=== PATIENT | female | born 1975 | race Caucasian/White ===

== ENCOUNTER → 2021-07-04 07:07 | Outpatient (CLI) | payer BC, SELFPAY ==
--- NOTE | ~2021-07-04 | MM_ITS ---
EXAMINATION: MM screening elizabeth BI w desire HISTORY: Screening TECHNIQUE: Craniocaudal and mediolateral oblique 3-D tomosynthesis images were obtained and synthetic 2-D images were generated. CAD analysis was submitted and interpreted. COMPARISON: Comparison to multiple prior studies sequentially, with oldest reviewed study dated 02/16. BREAST PARENCHYMAL COMPOSITION: There are scattered areas of fibroglandular density. FINDINGS: There is no evidence of suspicious mass, calcification, or architectural distortion to sugg est malignancy in either breast. There has been no suspicious interval change. IMPRESSION: 1. No mammographic evidence of malignancy. 2. Recommend routine screening mammography in one year. BI-RADS Category 1: Negative Reviewed, dictated and finalized at location A. OPERATOR
== END ==
PROVIDERS: PCP Family Medicine; Visit Provider Family Medicine
DX: Z12.31 Encounter for screening mammogram for malignant neoplasm of breast (principal)
CPT/HCPCS: 77063; 77067

== ENCOUNTER → 2022-08-25 12:20 | Outpatient (CLI) | payer BC, SELFPAY ==
--- NOTE | ~2022-08-25 | MM_ITS ---
EXAMINATION: MM screening elizabeth BI w desire HISTORY: Screening TECHNIQUE: Craniocaudal and mediolateral oblique 3-D tomosynthesis images were obtained and synthetic 2-D images were generated. CAD analysis was submitted and interpreted. COMPARISON: Comparison to multiple prior studies sequentially, with oldest reviewed study dated 02/16. BREAST PARENCHYMAL COMPOSITION: There are scattered areas of fibroglandular density. FINDINGS: There is no evidence of suspicious mass, calcification, or architectural distortion to sugg est malignancy in either breast. There has been no suspicious interval change. IMPRESSION: 1. No mammographic evidence of malignancy. 2. Recommend routine screening mammography in one year. BI-RADS Category 1: Negative Reviewed, dictated and finalized at location A. DING MACHINE OPERATOR
== END ==
PROVIDERS: PCP Family Medicine; Visit Provider Family Medicine
DX: Z12.31 Encounter for screening mammogram for malignant neoplasm of breast (principal)
CPT/HCPCS: 77063; 77067

== ENCOUNTER 2024-04-09 12:06 | Outpatient (CLI) | payer BC, SELFPAY ==
--- NOTE | ~2024-04-09 | MM_ITS ---
EXAMINATION: MM screening elizabeth BI w desire HISTORY: Screening mammogram TECHNIQUE: Craniocaudal and mediolateral oblique 3-D tomosynthesis images were obtained and synthetic 2-D images were generated. CAD analysis was submitted and interpreted. COMPARISON: 08/25/2022, 07/04/2021, 05/22/2019 BREAST PARENCHYMAL COMPOSITION:Not Dense. The breasts are almost entirely fatty FINDINGS: No suspicious mass, calcification, or architectural distortion are identified in either vero ast to suggest malignancy. There has been no suspicious interval change. IMPRESSION: No mammographic evidence of malignancy. Recommend routine screening mammography in one year. BI-RADS Category 1: Negative Reviewed, dictated and finalized at location .
== END 2024-04-09 12:07 | disposition home or self-care (01) ==
LOC: MICIMG 12:06
PROVIDERS: PCP Family Medicine; Visit Provider Family Medicine
DX: Z12.31 Encounter for screening mammogram for malignant neoplasm of breast (principal)
CPT/HCPCS: 77063; 77067

== ENCOUNTER 2024-06-18 09:59 | Outpatient (CLI) | payer BC, SELFPAY ==
--- NOTE | ~2024-06-18 | US_ITS ---
US pelvic complete Ordering provider: Kavita Noble MD History: . vag bleeding, abnormal CT . Comparison: None. Technique: Transabdominal ultrasound of the pelvis (Doppler ultrasound interrogation techniques used as needed for this exam.) FINDINGS: CERVIX: Normal. UTERUS: Measures 18.3x 11x 12 cm in length which is within normal limits and is anteverted. Large fi broid is noted measuring 11.9 x 9.7 x 10.3 cm. ENDOMETRIUM: Not seen. CUL DE SAC: No free fluid. RIGHT OVARY: Not seen. LEFT OVARY: Not seen. ADNEXA: Normal. No mass. IMPRESSION: Large fibroid. The other differential include leiomyosarcoma. MRI may be advisable. Follow-up advised . Reviewed, dictated and finalized at location A. NAIL RASPER IMPRESSION: Large fibroid. The other differential include leiomyosarcoma. MRI may be advisa ble. Follow-up advised.
== END 2024-06-18 10:00 | disposition home or self-care (01) ==
PROVIDERS: Visit Provider Family Medicine
DX: D25.9 Leiomyoma of uterus, unspecified (principal)
CPT/HCPCS: 76856

== ENCOUNTER 2024-07-11 08:32 | Outpatient (CLI) | payer BC, SELFPAY ==
--- NOTE | ~2024-07-11 | MR_ITS ---
EXAMINATION: MR pelvis wo/w con DATE: 07/11/2024 10:06 INDICATION: Intra-abdominal and pelvic swelling. TECHNIQUE: Magnetic resonance imaging (MRI) of the pelvis was performed without and with 20 mL MultiH ance intravenous contrast. COMPARISON: Pelvis ultrasound 05/18/2024 FINDINGS: There are no dilated loops of bowel. There is an 11.1 cm intramural uterine fibroid. There is a 2.1 c m intramural uterine fibroid. There are 5.4 cm and 4.5 cm pedunculated fibroids on the left. There is mass effect on the endometrial complex, which is not thickened. There are small nabothian cysts in t he cervix. There is a 5.2 cm enhancing presacral mass centered to the right of midline. The periuteri ne and ovarian veins are enlarged. There are no pathologically enlarged lymph nodes. There is no asci tamia. IMPRESSION: 1. Uterine fibroids. 2. 5.2 cm enhancing presacral mass. The differential diagnosis includes peripheral nerve sheath tumor , sarcoma, and teratoma. CT-guided biopsy is recommended. Reviewed, dictated and finalized at location A. SE REMOVER IMPRESSION: 1. Uterine fibroids. 2. 5.2 cm enhancing presacral mass. The differential diagnosis includes periphe ral nerve sheath tumor, sarcoma, and teratoma. CT-guided biopsy is recommended.
== END 2024-07-11 08:33 | disposition home or self-care (01) ==
LOC: MICIMG 08:34
PROVIDERS: Visit Provider Family Medicine
DX: D25.1 Intramural leiomyoma of uterus (principal)
CPT/HCPCS: 72197; A9577